=== PATIENT | male | born 1970 | race Two or more races ===

== ENCOUNTER 2023-02-09 10:44 | Emergency (ER) | payer OTHER, SELFPAY ==
[2023-02-09 11:18] LABS: INR-International Normal Ratio 0.9; Prothrombin Time 12.8 sec (12.0-14.7)
[2023-02-09 11:27] LABS: ALT (SGPT) 25 U/L (8-55); AST (SGOT) 20 U/L (5-34); Alkaline Phosphatase 67 U/L (40-110); Anion Gap 14 mmol/L (10-20); BUN (Urea Nitrogen) 12 mg/dL (8.4-25.7); Bilirubin, Total 0.5 mg/dL (0.2-1.2); Calc. Creatinine Clearance 0 mL/min (70-130); Calcium 8.8 mg/dL (7.8-10.44); Carbon Dioxide 22 mmol/L (22-29); Chloride 107 mmol/L (98-107); Estimated GFR 107; Globulin 2.6 g/dL (2.4-3.5); Glucose 204 mg/dL (70-105); Potassium 3.8 mmol/L (3.5-5.1); Protein, Total 6.6 g/dL (6.0-8.3); Sodium 139 mmol/L (136-145)
[2023-02-09] MEDS ORDERED: Morphine 4 MG/ML VIAL ONE (11:40)
[2023-02-09 11:42] LABS: Red Blood Cell (RBC) Count 4.25 mill/uL (4.70-6.10)
[2023-02-09 11:43] LABS: Mean Corpuscular Hemoglobin 34.5 pg (27.0-31.0); Mean Corpuscular Volume 91.8 fl (78.0-98.0)
[2023-02-09 11:44] LABS: RBC Distribution Width 10.7 % (11.5-14.5)
[2023-02-09 11:45] LABS: #Lymphocytes 1.3 thou/uL (1.20-3.40); #Neutrophils 4.1 thou/uL (1.40-6.50); %Basophils 0.7 % (0.0-1.0); %Lymphocytes 18.4 % (21.0-51.0); %Monocytes 5.4 % (0.0-10.0); %Neutrophils 74.5 % (42.0-75.0); Mean Platelet Volume 11.3 fL (7.4-10.4); Platelet Count 154 10x3/uL (130-400)
[2023-02-09 11:46] LABS: #Eosinphils 0.1 thou/uL (0.0-0.7)
[2023-02-09 11:47] LABS: Mean Corpuscular HGB CONC 37.5 g/dL (32.0-36.0)
[2023-02-09 11:48] LABS: White Blood Cell (WBC) Count 6.8 10x3/uL (4.8-10.8)
[2023-02-09 11:49] LABS: Hemoglobin 14.6 g/dL (14.0-18.0)
[2023-02-09] MEDS ORDERED: Iopamidol 370 76% 100 ML VIAL ONE (13:02)
[2023-02-09] MEDS ORDERED: Boostrix 0.5 ML (Tdap) VIAL (>/=7 yrs of age) ONE (13:35)
[2023-02-09] MEDS ORDERED: Lidocaine 1% w/Epinephrine 1:100K 20 ML VIAL ONE (13:56)
[2023-02-09] MEDS ORDERED: Bacitracin 1 PK ONE (14:40)
== END 2023-02-09 15:07 | disposition home or self-care (01) ==
LOC: MADERS 10:44
DX: S11.91XA Laceration without foreign body of unspecified part of neck, initial encounter (principal); S00.83XA Contusion of other part of head, initial encounter; K21.9 Gastro-esophageal reflux disease without esophagitis; F17.210 Nicotine dependence, cigarettes, uncomplicated; V89.2XXA Person injured in unspecified motor-vehicle accident, traffic, initial encounter
CPT/HCPCS: 12001; 70450; 70486; 71260; 72125; 74177; 80053; 83605; 84484; 85025; 85610; 90471; 90715; 93005; 96374; J2270; Q9967